=== PATIENT | male | born 1955 | race Caucasian/White ===

== ENCOUNTER 2018-05-22 14:25 | Emergency (ER) | payer BC ==
[2018-05-22] MEDS ORDERED: ASPIRIN 325 MG TABLET PO ONE (14:42)
[2018-05-22] MEDS ORDERED: DILTIAZEM 25MG/5ML VIAL IV ONE (14:47)
[2018-05-22 14:52] LABS: BASO % 0.6 % (0-6); EOS % 1.7 % (0-6); GRAN % 61.4 % (47-80); HEMATOCRIT 56.2 % (42.0-52.0); HEMOGLOBIN 19.9 gm/dl (14.0-18.0); LYMPH % 25.6 % (16-45); MEAN CELL VOLUME 93.2 fl (81-97); MEAN CORPUSCULAR HGB CONC 35.4 g/dl (32-36); MEAN PLATELET VOLUME 9.9 fl (7.4-10.4); MONO % 10.7 % (0-9); PLATELET COUNT 249 K/uL (130-400); RED BLOOD COUNT 6.03 M/uL (4.40-5.70); RED CELL DISTRIBUTION WIDTH 13.5 % (11.5-14.5)
--- NOTE | 2018-05-22 14:57 | Emergency Department Record ---
History of Present Illness - General Chief Complaint: Palpitations Stated Complaint: RAPID HEART RATE Time Seen by Provider: 05/22/18 14:41 Source: Patient, Family Mode of Arrival: Ambulatory Limitations: No limitations - History of Present Illness Initial Comments: The patient is here due to having a fast HR and palpitations since about 9am today. He denies any chest pain but has had MASON mildly. He has no hx of Afib or flutter but does have an old RBBB. The patient also denies any new medicines, foods, or any recent illnesses. MD Complaint: Palpitations Onset/Timin -: Hour(s) Context: Occurred during rest Associated Symptoms: Shortness of breath - Related Data Home Medications Medication Instructions Recorded Confirmed Last Taken Felodipine [Felodipine ER] 5 mg PO DAILY 05/22/18 05/22/18 05/22/18 Methocarbamol [Robaxin] 1 tab PO TID 05/22/18 05/22/18 05/22/18 Nabumetone 500 mg PO ASDIR 05/22/18 05/22/18 Unknown Allergies Allergy/AdvReac Type Severity Reaction Status Date / Time iodine contrast Allergy Severe HIVES Uncoded 05/22/18 14:28 adhesive tapes AdvReac Intermediate SKIN Uncoded 05/22/18 14:28 IRRITATION Review of Systems Constitutional: Denies: Chills, Fever Eyes: Denies: Eye discharge ENT: Denies: Congestion Respiratory: Denies: Cough, Dyspnea Cardiovascular: Reports: Arrhythmia, Dyspnea on exertion, Palpitations. Denies : Chest pain Endocrine: Denies: Fatigue Gastrointestinal: Denies: Diarrhea, Vomiting Genitourinary: Denies: Hematuria Musculoskeletal: Denies: Arthralgia Skin: Denies: Bruising Past Medical History - SOCIAL HISTORY Smoking Status: Never smoker - RESPIRATORY Hx Respiratory Disorders: Yes Hx Asthma: Yes Hx COPD: Yes Hx Pneumonia: Yes (10 yrs ago) Hx Sleep Apnea: Yes Hx of CPAP: Yes Comment:: allergic rhinitis hx - CARDIOVASCULAR Hx Cardio Disorders: Yes Hx Abnormal EKG: Yes (RBBB) Hx Cardiac Cath: Yes (10yrs ago) Hx Deep Vein Thrombosis: No Hx Hypertension: Yes (good control w meds) Hx Coronary Artery Disease: Yes - NEURO Hx Neuro Disorders: No - GI Hx GI Disorders: Yes Hx Abdominal Pain: Yes (RUQ ecspecially after fatty foods) Hx Diverticulitis: Yes (no inflammation) Hx GI Bleed: Yes (2 yrs ago) Hx Reflux: Yes Hx Hiatal Hernia: Yes (fixed w Ayanna 2010) Hx Liver Disease: Yes (bilirubin high) Hx Nausea/Vomiting: Yes Hx Rectal Bleeding: Yes Comment:: ; also has hx hemorrhoids. - Hx Genitourinary Disorders: No Comment:: ; hx of hypogonadism. - ENDOCRINE Hx Endocrine Disorders: No - MUSCULOSKELETAL Hx Musculoskeletal Disorders: Yes Hx Arthritis: Yes (osteoarthritis) - PSYCH Hx Psych Problems: No - HEMATOLOGY/ONCOLOGY Hx Hematology/Oncology Disorders: No Hx Anemia: Yes Family Medical History Family Hx Comment (NOT TO BE USED IN PLACE OF ITEMS BELOW): both parents have heart disease. Hx Heart Disease: Father, Mother Physical Exam - General General Appearance: Alert, Oriented x3, Cooperative, No acute distress - Head Head exam: Atraumatic, Normocephalic, Normal inspection - Eye Eye exam: Normal appearance, PERRL - Neck Neck exam: Normal inspection, Full ROM. negative: Tenderness - Respiratory Respiratory exam: Normal lung sounds bilaterally. negative: Respiratory distress - Cardiovascular Cardiovascular Exam: Regular rate, Tachycardia. negative: Normal rhythm - GI/Abdominal GI/Abdominal exam: Soft, Normal bowel sounds. negative: Tenderness - Extremities Extremities exam: Normal inspection, Full ROM, Normal capillary refill. negative: Tenderness - Neurological Neurological exam: Alert, Normal gait. negative: Abnormal gait, Motor sensory deficit - Psychiatric Psychiatric exam: negative: Anxious Course - Reevaluation(s) Reevaluation #1: The patient is doing a lot better at this time and did convert to NSR on his own. He denies any pain or discomfort. 05/22/18 15:19 Reevaluation #2: The patient is doing well at this time. He is resting comfortably with no complaints. His 2nd EKG does demonstrate NSR with ectopy. 05/22/18 16:02 Reevaluation #3: 3rd EKG: NSR at 84, RBBB with LAFB, No change when compared to 09/15/14. I did discuss the CXR report and elevated liver enzymes with the patient and the need for F/U. 05/22/18 16:15 05/22/18 16:17 Reevaluation #4: The patient is doing well at this time. I did discuss the need for a short stay admission to monitor his heart but he is unwilling to stay. I explained to him that the risks of NOT staying in the hospital area that the patient could go home and have an PR, stroke, become disabled and even . The patient understands and accepts the risks and will F/U with Cardiology in the Specialty clinic next week. He is to return to the ER for any return of the fast HR. 05/22/18 17:50 Medical Decision Making - Data Complexity MDM Data: Labs Ordered and/or Reviewed, X-Ray Ordered and/or Reviewed, EKG Ordered and/or Reviewed - Lab Data Result diagrams: 05/22/18 14:39 05/22/18 14:39 Lab Results 05/22/18 Range/Units 14:39 WBC 9.0 (4.2-12.2) K/uL RBC 6.03 H (4.40-5.70) M/uL Hgb 19.9 H (14.0-18.0) gm/dl Hct 56.2 H (42.0-52.0) % MCV 93.2 (81-97) fl MCH 33.0 (27-33) pg MCHC 35.4 (32-36) g/dl RDW 13.5 (11.5-14.5) % Plt Count 249 (130-400) K/uL MPV 9.9 (7.4-10.4) fl Gran % 61.4 (47-80) % Lymphocytes % 25.6 (16-45) % Monocytes % 10.7 H (0-9) % Eosinophils % 1.7 (0-6) % Basophils % 0.6 (0-6) % - EKG Data -: EKG Interpreted by Me (Atrial flutter at 156. Old RBBB.) - Radiology Data Radiology results: Report reviewed (CXR: Neg for acute changes. Prominence of the R paratracheal stripe. Old R clavicle changes.) Disposition Disposition: Discharge Clinical Impression: Atrial flutter by electrocardiogram Disposition: Home, Self-Care Condition: (2) Stable Instructions: Heart Palpitations (ED) Additional Instructions: Please continue your regular medicines and stay away from any caffiene. Please see Dr. Barker or Nena next week for recheck and also see your family doctor for further evaluation of your lab work abnormalities and CXR. Return to the ER for any return of the fast HR, or any chest pain, shortness of breath or sweating. Forms: Patient Portal Access Time of Disposition: 17:54 Quality - Quality Measures Quality Measures: N/A - Blood Pressure Screening View Details: Yes Does Patient Have Any of the Following: Active Dx of HTN Blood Pressure Classification: Hypertensive Reading Systolic Measurement: 142 Diastolic Measurement: 95 Screening for High Blood Pressure: Patient Exclusion, Hx of HTN [G9744]
[2018-05-22] MEDS ORDERED: DILTIAZEM HCL 125 MG in 0.9 % SODIUM CHLORIDE 100ML 100 ML IV SCH (15:00)
[2018-05-22 15:02] LABS: BLOOD UREA NITROGEN 14 mg/dL (8-23); CREATININE 0.8 mg/dL (0.7-1.2); EST GLOMERULAR FILTRATION RATE > 60 mL/min
[2018-05-22 15:03] LABS: TOTAL PROTEIN 7.7 g/dL (6.6-8.7)
[2018-05-22 15:04] LABS: PARTIAL THROMBOPLASTIN TIME 30.6 SECONDS (24.5-39.1); PROTHROMBIN TIME (PATIENT) 10.1 SECONDS (9.5-12.1)
[2018-05-22 15:05] LABS: GLUCOSE,RANDOM 126 mg/dL (74-109)
[2018-05-22 15:07] LABS: ALB/GLOB RATIO 1.3 (1.1-1.8); ALBUMIN 4.4 g/dL (4.0-5.0); ALT/SGPT 76 U/L (<41); AST/SGOT 58 U/L (10.0-50.0)
[2018-05-22 15:08] LABS: ALKALINE PHOSPHATASE 57 U/L (40-129); CREATINE PHOSPHOKINASE 211 U/L (39-308)
[2018-05-22 15:09] LABS: CKMB 4.5 ng/mL (<6.73)
[2018-05-22 17:31] LABS: CKMB 4.2 ng/mL (<6.73)
--- NOTE | 2018-05-23 08:31 | RADIOLOGY REPORT ---
DATE: 05/22/2018. EXAM: PORTABLE CHEST. HISTORY: DIFFICULTY BREATHING. TECHNIQUE: Portable AP upright view of the chest was performed. FINDINGS: Heart size is upper limits normal. There is healing granulomatous disease. No infiltrate. No pleural effusion. There is postoperative surgical change or osteolysis of the right clavicle. Mild prominence of the right paratracheal stripe. IMPRESSION: 1. NO ACUTE INTRATHORACIC DISEASE PROCESS. 2. OSTEOLYSIS OR SURGICAL RESECTION OF THE RIGHT MID CLAVICLE. 3. MILD PROMINENCE OF THE RIGHT PARATRACHEAL STRIPE. THIS MAY BE RELATED TO LYMPHADENOPATHY OR ECTATIC VASCULATURE. JOB NUMBER: [id number] [facility]
== END 2018-05-22 18:03 | disposition home or self-care (01) ==
LOC: ER 14:25
DX: I48.92 Unspecified atrial flutter (principal); R06.02 Shortness of breath; J44.9 Chronic obstructive pulmonary disease, unspecified; I10 Essential (primary) hypertension
CPT/HCPCS: 71045; 80053; 82550; 82553; 84443; 84484; 85025; 85610; 85730; 93005; 93010; 96374; 99284